=== PATIENT | male | born 1960 | race Hispanic/Latino ===

== ENCOUNTER 2017-05-25 05:57 | Inpatient (IN) | payer OTHER ==
[2017-05-06 07:50] VITALS: BMI 32.8
[2017-05-25] MEDS ORDERED: Bupivacaine 0.5% Inj(30mL) ONE ×2 (07:32→12:01)
[2017-05-25] MEDS ORDERED: Bupivacaine HCl 0.25% PF (10 ml) Inj ONE (07:32)
[2017-05-25] MEDS ORDERED: ceFAZolin IV 2 gm in Dextrose 0 GM/0 ML BAG IVPB ONE (07:33)
[2017-05-25] MEDS ORDERED: Midazolam 2 MG/2 ML VIAL ONE (07:43)
[2017-05-25] MEDS ORDERED: Propofol 10 mg/ml Inj (20 ML) ONE (07:43)
[2017-05-25] MEDS ORDERED: Lactated Ringer's 1,000 ML IV ONE ×2 (07:45→11:00)
[2017-05-25] MEDS ORDERED: Tranexamic Acid 100 mg/ml IV PRN (07:49)
--- NOTE | 2017-05-25 07:52 | CP.PCM.HP ---
History of Present Illness - History of Present Illness History of Present Illness: 56M with left knee DJD failed conservative mgmt and elected for TKR. 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) - HEENT Hx HEENT Problems: Yes (GLASSES) - RENAL Hx Chronic Kidney Disease: No - ENDOCRINE/METABOLIC Hx Endocrine Disorders: No - HEMATOLOGICAL/ONCOLOGICAL Hx Blood Disorders: No - INTEGUMENTARY Hx Dermatological Problems: No - MUSCULOSKELETAL/RHEUMATOLOGICAL Hx Musculoskeletal Disorders: Yes Hx Fractures: Yes (RT ARM /CASTED NO OR CHILDHOOD) Hx Osteoarthritis: Yes - GASTROINTESTINAL Hx Gastrointestinal Disorders: No - GENITOURINARY/GYNECOLOGICAL Hx Genitourinary Disorders: No - PSYCHIATRIC Hx Psychophysiologic Disorder: No Hx Substance Use: No - SURGICAL HISTORY Hx Surgeries: Yes Hx Arthroscopy: Yes (LEFT KNEE ARTHROSCOPY) Hx Orthopedic Surgery: Yes (ARM) Other/Comment: CRANIOTOMY EVACUATION SUB DURAL HEMATOMA 1985 - ANESTHESIA Hx Anesthesia: Yes Hx Anesthesia Reactions: No Hx Malignant Hyperthermia: No Has any member of the family had a problem w/ anesthesia?: No Meds Allergies/Adverse Reactions: Allergies Allergy/AdvReac Type Severity Reaction Status Date / Time amoxicillin trihydrate Allergy Verified 08/07/16 09:39 [From Augmentin] carbamazepine [From Tegretol] Allergy Verified 08/07/16 09:39 potassium clavulanate Allergy Verified 08/07/16 09:39 [From Augmentin] Physical Exam - Constitutional Appears: Well, No Acute Distress - Expanded Lower Extremities Exam Right Ankle exam: FULL ROM (+DP/PT pulses, calves soft NT neg homans +ROM ankle/toes, skin intact, no erythema) - Neurological Exam Neurological exam: Alert, Oriented x3 - Psychiatric Exam Psychiatric exam: Normal Affect, Normal Mood - Skin Skin Exam: Dry, Intact, Normal Color, Warm Results - Vital Signs Recent Vital Signs: Last Vital Signs Temp 98.1 F 05/25/17 06:16 Pulse 62 11/28/17 06:16 Resp 15 05/25/17 06:16 BP 143/71 05/25/17 06:16 Pulse Ox 96 05/25/17 06:16 Assessment & Plan (1) Primary osteoarthritis of left knee Assessment and Plan: NPO for OR Status: Acute
[2017-05-25] MEDS ORDERED: Bupivacaine Liposomal Inj 20 ml INFIL ONE (08:00)
[2017-05-25] MEDS ORDERED: Clindamycin 600mg/50ml NS 600 MG/50 ML BAG IVPB ONE (08:04)
[2017-05-25] MEDS ORDERED: Vancomycin 1 g Inj ONE (08:04)
[2017-05-25] MEDS ORDERED: Sodium Chloride 0.9% 20 ML IV ONE (08:11)
[2017-05-25] MEDS ORDERED: Bacitracin 150,000 UNIT in Sodium Chloride 0.9% Irrig 3,000 ML IR SCH (08:30)
[2017-05-25] MEDS ORDERED: ePHEDrine 50 mg/ml Inj ONE (08:38)
[2017-05-25] MEDS ORDERED: Rocuronium 10 mg/ml (10 ml) ONE ×2 (08:40)
[2017-05-25] MEDS ORDERED: Morphine 4 MG/ML VIAL ONE (09:46)
[2017-05-25] MEDS ORDERED: EPINEPHrine 1:1000 Nasal Sol(30mL) ONE (09:51)
[2017-05-25] MEDS ORDERED: Neostigmine Methylsulfate 3mg/3ml Syringe IV ONE (11:25)
[2017-05-25] MEDS ORDERED: HYDROmorphone 0.5 mg/0.5 ml ISec ONE (11:39)
[2017-05-25] MEDS: HYDROmorphone 0.5 mg/0.5 ml ISec IVP PRN ×7 (11:40→23:39)
--- NOTE | 2017-05-25 12:20 | RAD ---
PROCEDURE: Left Knee Radiographs. HISTORY: Pain. COMPARISON: None. FINDINGS: The patient is status post total left knee arthroplasty with prosthetic components seen in good alignment. A small amount of expected air and fluid is seen in suprapatellar bursa. A surgical drain is present. IMPRESSION: Status post total left knee arthroplasty.
--- NOTE | 2017-05-25 14:11 | PCM.ANESB7 ---
Adductor Canal Block - Adductor Canal Block Date of Procedure: 05/25/17 Procedure Performed: Adductor Canal Block Left - Procedure Adductor Canal Block: The procedure was explained to the patient that it is for the post-operative pain management. Consent was obtained after a thorough discussion with the patient regarding the benefits and possible complications of local anesthetic adductor canal block of the saphenous nerve. Standard monitors, as defined by the ASA, were applied to the patient. Time-out was held with the circulating nurse to confirm the appropriate block. After applying supplemental oxygen , the patient was placed in supine position with and the operative leg was flexed slightly at the knee and externally rotated as needed, and was kept anatomically stable. The mid-thigh of the LEFT lower extremity was exposed. The ultrasound transducer was then applied transversely along the medial aspect , about midway down the thigh and the femoral artery and vein were identified in appropriate relation with the sartorius muscle. At this time, the femoral nerve was visualized lateral to the femoral artery within the canal. After thorough identification, this area area was prepped with Chloroprep solution three times and 1 % Lidocaine was injected subcutaneously for topical anesthesia. At this point, a #22 gauge Stimuplex 4-inch needle was inserted in-plane in a [id number] orientation, and advanced toward the femoral nerve. Advancement was performed carefully under direct ultrasound visualization. . After negative aspiration, 5_cc of _0.5_% _bupivicaine__was injected and this was followed with _15 cc of _0.5 % bupivicaine__. Under ultrasound guidance the local anesthetics were observed spreading around the saphenous nerve. The needle was removed intact and sterile dressing was applied. The patient had stable vital signs, was conscious and in no apparent distress. The patient tolerated the adductor canal block well with stable vital signs, no paresthesias or other complaints.
[2017-05-25] MEDS: Oxycodone/Acetaminophen 5/325 mg Tab PO PRN (15:54)
[2017-05-25] MEDS: Clindamycin 600mg/50ml D5W 600 MG/50 ML VIAL IVPB SCH ×2 (16:10→20:00)
[2017-05-25] MEDS ORDERED: Sodium Chloride 0.9% 1,000 ML IV ONE (16:30)
[2017-05-25] MEDS: Sodium Chloride 0.9% 1,000 ML IV SCH ×2 (21:00→21:15)
--- NOTE | 2017-05-26 02:23 | OP ---
PREOPERATIVE DIAGNOSIS: Osteoarthritis of the left knee. POSTOPERATIVE DIAGNOSES: Severe osteoarthritis of the left knee with fixed flexion contracture of 15 degrees and fixed varus deformity of 15 degree. PROCEDURE: 1. Total knee replacement arthroplasty. 2. Autograft of the intercondylar notch of femur. 3. Release of fixed flexion contracture. 4. Release of fixed varus deformity. 5. Injection of Exparel. 6. Pulse lavage irrigation. 7. Insertion of vancomycin powder. 8. Insertion of Hemovac drain and application of compression dressing. PROCEDURE: Prior to the procedure, risks and benefits of the surgery, problems and complication explained including infection, cardiac, pulmonary, need for future surgery, permanent weakness, permanent numbness, possible loss of life and limb, etc, the patient fully understand and is agreeable. All the questions were answered. The patient was brought to the operating room. The left lower extremity was identified as extremity to be operated. Left lower extremity was prepped and draped in the usual manner. After draping and inflating the pneumatic tourniquet, a midline incision was made. Medial arthrotomy was done. The knee was subluxed laterally. The patient was found to have severe tricompartmental arthritis predominantly involving the medial and patellofemoral compartments. The fixed flexion contracture and fixed varus deformity are noted. Partial, medial, lateral meniscectomies were done. The knee was flexed to 90 degrees. Patella was subluxed laterally and osteophytes were excised. The release of soft tissues was performed. At this time, we proceeded with resecting the distal femur. A airplane pilot hole was made in the intercondylar notch of femur and we inserted intramedullary kanu. Distal femoral resection was done to accommodate the flexion contracture. We proceeded with sizing the distal femur. Distal femur size is 70 mm size. At this point, using a 4-in-1 cutting block, anterior posterior cuts and also cutting of the chamfers was done. Once this was accomplished, we placed a femoral cutting guide. The intercondylar notch of femur was resected to accommodate the PS open box. The bone that was harvested was used to autograft the intercondylar notch of the femur. Then we proceeded to preparing the proximal tibia for the total knee replacement arthroplasty. Completion of medial, lateral meniscectomies were done. Proximal tibial resection was done keeping the posterior slope and varus and valgus alignment in mind. We used a cutting guide keying off from the more involved medial side. The guide was inserted and 4 mm of proximal tibia was resected. At this point, we prepared the proximal tibia using the reaming and a cruciate punch was used to accommodate the finned tibial stem. At this point, trial reduction was carried out and 10 mm spacer was found to be stable in flexion and extension. A 12 mm spacer was found to create a flexion contracture. At this point, we proceeded with preparing the patella. The circumferential soft tissue was excised around the patella including synovectomy. Osteophytes were removed. The patella was resected and patella was sized measured to be 34 mm in size. We proceeded with 34 mm of trial prosthesis. We used the template and we drilled 3 holes to accommodate the 3 pegs for the patellar prosthesis. At this point, we thoroughly lavaged the pulse lavage irrigation of the wound and we also used chlorhexidine irrigation. We implanted the permanent femur, permanent tibia. Once again, we did trial reduction of 12 mm tibial bearing, it was found to create flexion contracture. We proceeded with locking of the 10 mm tibial bearing and it was held secured with the locking plate. After this was done, the patella was cemented in place. Loose fragments of cement were removed. Patellar tracking was found to be excellent. At this point, the wounds were thoroughly irrigated. The tourniquet was released. Hemostasis was obtained. Exparel was injected around the joint. Please note that TXA was given before the beginning of the procedure and at the end of the procedure. The knee was closed and silver dressing applied. The patient tolerated the procedure well and left the operating room to the recovery room in satisfactory condition. Alejandra Kinsey MD
[2017-05-26] MEDS: Sodium Chloride 0.9% 1,000 ML IV SCH ×3 (02:26→19:15)
[2017-05-26] MEDS: HYDROmorphone 0.5 mg/0.5 ml ISec IVP PRN ×4 (03:44→19:09)
[2017-05-26] MEDS: Oxycodone/Acetaminophen 5/325 mg Tab PO PRN ×4 (06:43→22:52)
[2017-05-26 07:41] LABS: BLOOD UREA NITROGEN 28 mg/dL (9-20); CALCIUM 7.4 mg/dl (8.6-10.4); CARBON DIOXIDE 23 mmol/L (22-30); CHLORIDE 99 mmol/L (98-107); GFR AFRICAN-AMERICAN > 60; GLUCOSE,RANDOM 114 mg/dL (75-110); POTASSIUM 3.5 mmol/L (3.6-5.2); SODIUM 133 mmol/L (132-148)
[2017-05-26 07:42] LABS: HEMATOCRIT 34.4 % (35.0-51.0); MEAN CELL VOLUME 88.7 fL (80.0-94.0); MEAN CORPUSCULAR HGB CONC 33.9 g/dL (33.0-37.0); MEAN PLATELET VOLUME 8.1 fL (7.2-11.7); RED CELL DISTRIBUTION WIDTH 13.5 % (11.5-14.5); WHITE BLOOD COUNT 11.6 K/uL (4.8-10.8)
[2017-05-26] MEDS: Multivitamin With Minerals Tab PO SCH (09:28)
[2017-05-26] MEDS ORDERED: Potassium Chloride 20 mEq ER Tab PO ONE ×2 (11:00→12:17)
--- NOTE | 2017-05-26 12:28 | CP.PCM.PN ---
Subjective - Date & Time of Evaluation Date of Evaluation: 05/26/17 Time of Evaluation: 12:23 - Subjective Subjective: Patient states pain is currently controlled. Denies CP/SOB/dizziness. Denies numbness/tingling. Objective - Vital Signs/Intake and Output Vital Signs (last 24 hours): Temp Pulse Resp BP Pulse Ox 98.6 F 79 18 131/60 96 05/26/17 08:05 05/26/17 08:05 05/26/17 08:05 05/26/17 08:05 05/26/17 08:05 Intake and Output: 05/26/17 05/26/17 06:59 18:59 Intake Total 1040 Output Total 200 400 Balance -200 640 - Medications Medications: Current Medications Amlodipine Besylate (Norvasc) 10 mg PO DAILY [facility] Last Admin: 05/26/17 09:28 Dose: 10 mg Apixaban (Eliquis) 2.5 mg PO BID [facility] Last Admin: 05/26/17 09:27 Dose: 2.5 mg Ezetimibe (Zetia) 10 mg PO DAILY [facility] Last Admin: 05/26/17 09:28 Dose: 10 mg Ferrous Sulfate (Feosol) 325 mg PO DAILY [facility] Last Admin: 05/26/17 09:28 Dose: 325 mg Folic Acid (Folic Acid) 1 mg PO DAILY [facility] Last Admin: 05/26/17 09:28 Dose: 1 mg Hydromorphone HCl (Dilaudid) 0.5 mg IVP Q4H PRN PRN Reason: Pain, severe (8-10) Last Admin: 05/26/17 07:54 Dose: 0.5 mg Sodium Chloride (Sodium Chloride 0.9%) 1,000 mls @ 100 mls/hr IV .Q10H [facility] Last Admin: 05/26/17 08:00 Dose: Not Given Losartan Potassium (Cozaar) 100 mg PO DAILY [facility] Last Admin: 05/26/17 09:29 Dose: 100 mg Multivitamins/Minerals (Therapeutic-M Tab) 1 tab PO DAILY [facility] Last Admin: 05/26/17 09:28 Dose: 1 tab Ondansetron HCl (Zofran Inj) 4 mg IVP Q6H PRN PRN Reason: Nausea/Vomiting Oxycodone/Acetaminophen (Percocet 5/325 Mg Tab) 2 tab PO Q4H PRN PRN Reason: Pain, moderate (4-7) Stop: 05/28/17 11:16 Last Admin: 05/26/17 10:54 Dose: 2 tab Rosuvastatin Calcium (Crestor) 5 mg PO HS [facility] Tranexamic Acid (Tranexamic Acid) 1,000 mg IV Q2H PRN PRN Reason: 1 G BEFORE AND AFTER INCISION Zolpidem Tartrate (Ambien) 5 mg PO HS PRN PRN Reason: Insomnia Last Admin: 05/25/17 23:00 Dose: 5 mg - Labs Labs: 05/26/17 07:10 05/26/17 07:10 - Extremities Exam Additional comments: LLE: +ROM ankle/toes, sensation intact, +DP/PT Pulses, calves soft NT neg homans hemovac intact, on CPM, NAD Assessment and Plan (1) Primary osteoarthritis of left knee Assessment & Plan: POD#1 s/p left TKR -d/c planning to home with services -grisis VTE proph -PT/OT -CPM -doppers tomorrow -Kdur ordered -labs in am -d/w Dr. Kinsey, agrees with above Status: Acute
[2017-05-26] MEDS: HYDROmorphone 1 mg/ml ISec IVP PRN (23:47)
[2017-05-27] MEDS: HYDROmorphone 1 mg/ml ISec IVP PRN ×2 (04:04→21:49)
[2017-05-27] MEDS: Sodium Chloride 0.9% 1,000 ML IV SCH (05:53)
[2017-05-27] MEDS: Oxycodone/Acetaminophen 5/325 mg Tab PO PRN ×3 (07:06→17:34)
[2017-05-27 07:32] LABS: HEMATOCRIT 32.7 % (35.0-51.0); MEAN CELL VOLUME 88.7 fL (80.0-94.0); MEAN CORPUSCULAR HEMOGLOBIN 30.9 pg (27.0-31.0); MEAN CORPUSCULAR HGB CONC 34.9 g/dL (33.0-37.0); MEAN PLATELET VOLUME 7.9 fL (7.2-11.7); RED CELL DISTRIBUTION WIDTH 13.5 % (11.5-14.5); WHITE BLOOD COUNT 9.9 K/uL (4.8-10.8)
--- NOTE | 2017-05-27 08:07 | CP.PCM.PN ---
Subjective - Date & Time of Evaluation Date of Evaluation: 05/27/17 Time of Evaluation: 07:59 - Subjective Subjective: Patient states pain overnight was severe. Pain medication was increased and it is a little better. Denies CP/SOB/numbness/tingling. Feels a little dizzy after pain medication, encouraged patient to take pain medication with food. Objective - Vital Signs/Intake and Output Vital Signs (last 24 hours): Temp Pulse Resp BP Pulse Ox 98.7 F 84 20 131/68 95 05/27/17 04:00 05/27/17 04:00 05/27/17 04:00 05/27/17 04:00 05/27/17 04:00 Intake and Output: 05/27/17 05/27/17 06:59 18:59 Intake Total 966 Output Total 1300 Balance -334 - Medications Medications: Current Medications Amlodipine Besylate (Norvasc) 10 mg PO DAILY [facility] Last Admin: 05/26/17 09:28 Dose: 10 mg Apixaban (Eliquis) 2.5 mg PO BID [facility] Last Admin: 05/26/17 19:08 Dose: 2.5 mg Ezetimibe (Zetia) 10 mg PO DAILY [facility] Last Admin: 05/26/17 09:28 Dose: 10 mg Ferrous Sulfate (Feosol) 325 mg PO DAILY [facility] Last Admin: 05/26/17 09:28 Dose: 325 mg Folic Acid (Folic Acid) 1 mg PO DAILY [facility] Last Admin: 05/26/17 09:28 Dose: 1 mg Hydromorphone HCl (Dilaudid) 1 mg IVP Q4H PRN PRN Reason: Pain, severe (8-10) Last Admin: 05/27/17 04:04 Dose: 1 mg Sodium Chloride (Sodium Chloride 0.9%) 1,000 mls @ 100 mls/hr IV .Q10H [facility] Last Admin: 05/27/17 05:53 Dose: Not Given Ketorolac Tromethamine (Toradol) 30 mg IVP ONCE ONE Stop: 05/27/17 08:16 Losartan Potassium (Cozaar) 100 mg PO DAILY [facility] Last Admin: 05/26/17 09:29 Dose: 100 mg Multivitamins/Minerals (Therapeutic-M Tab) 1 tab PO DAILY [facility] Last Admin: 05/26/17 09:28 Dose: 1 tab Ondansetron HCl (Zofran Inj) 4 mg IVP Q6H PRN PRN Reason: Nausea/Vomiting Oxycodone/Acetaminophen (Percocet 5/325 Mg Tab) 2 tab PO Q4H PRN PRN Reason: Pain, moderate (4-7) Stop: 05/28/17 11:16 Last Admin: 05/27/17 07:06 Dose: 2 tab Rosuvastatin Calcium (Crestor) 5 mg PO HS [facility] Last Admin: 05/26/17 21:21 Dose: 5 mg Tranexamic Acid (Tranexamic Acid) 1,000 mg IV Q2H PRN PRN Reason: 1 G BEFORE AND AFTER INCISION Zolpidem Tartrate (Ambien) 5 mg PO HS PRN PRN Reason: Insomnia Last Admin: 05/26/17 21:21 Dose: 5 mg - Labs Labs: 05/27/17 07:06 05/26/17 07:10 - Extremities Exam Additional comments: +ROM ankle/toes,s ensation intact, calves soft NT neg homans, incision intact, dry, hemovac pulled and compression dressing applied. +DP/PT pulses, no erythema. Assessment and Plan (1) Primary osteoarthritis of left knee Assessment & Plan: POD#2 s/p left TKR -will try toradol for pain control -narcotics with food -PT/OT -f/u labs -d/c planning to home, will see how patient feels in pm, set up for home PT -f/u dopplers -d/w Dr. Kinsey, agrees with above Status: Acute
[2017-05-27 08:46] LABS: BLOOD UREA NITROGEN 21 mg/dL (9-20); CALCIUM 7.7 mg/dl (8.6-10.4); CARBON DIOXIDE 28 mmol/L (22-30); CHLORIDE 99 mmol/L (98-107); GFR AFRICAN-AMERICAN > 60; GLUCOSE,RANDOM 111 mg/dL (75-110); POTASSIUM 3.9 mmol/L (3.6-5.2); SODIUM 136 mmol/L (132-148)
[2017-05-27] MEDS: Multivitamin With Minerals Tab PO SCH (09:42)
--- NOTE | 2017-05-27 13:52 | VASCLAB ---
PROCEDURE: Lower Extremity Venous Duplex Exam. HISTORY: Leg swelling PRIORS: None. TECHNIQUE: Bilateral common femoral, femoral, popliteal and posterior tibial, peroneal and great saphenous veins were evaluated. Flow was assessed with color Doppler, compressibility, assessment of phasic flow and augmentation response. Report prepared by DANITA Owen, RVT FINDINGS: RIGHT: 1. Common Femoral Vein: 1.1. Compressibility - Fully compressible: Thrombus - None : Flow - Phasic: Augmentation -Normal: Reflux - None. 2. Femoral Vein: 2.1. Compressibility - Fully compressible: Thrombus - None : Flow - Phasic: Augmentation -Normal: Reflux - None. 3. Popliteal Vein: 3.1. Compressibility - Fully compressible: Thrombus - None : Flow - Phasic: Augmentation -Normal: Reflux - None. 4. Posterior Tibial Vein: 4.1. Compressibility - Fully compressible: Thrombus - None: Flow - Phasic: Augmentation -Normal: Reflux - None. 5. Peroneal Vein: 5.1. Compressibility - Fully compressible: Thrombus - None: Flow - Phasic: Augmentation -Normal: Reflux - None. 6. Great Saphenous Vein: 6.1. Compressibility - Fully compressible: Thrombus - None: Flow - Phasic: Augmentation - Normal: Reflux - None. LEFT: 1. Common Femoral Vein: 1.1. Compressibility - Fully compressible: Thrombus - None: Flow - Phasic: Augmentation -Normal: Reflux - None. 2. Femoral Vein: 2.1. Compressibility - Fully compressible: Thrombus - None: Flow - Phasic: Augmentation -Normal: Reflux - None. 3. Popliteal Vein: 3.1. Compressibility - Fully compressible: Thrombus - None : Flow - Phasic: Augmentation -Normal: Reflux - None. 4. Posterior Tibial Vein: 4.1. Compressibility - Fully compressible: Thrombus - None: Flow - Phasic: Augmentation -Normal: Reflux - None. 5. Peroneal Vein: 5.1. Compressibility - Fully compressible: Thrombus - None: Flow - Phasic: Augmentation -Normal: Reflux - None. 6. Great Saphenous Vein: 6.1. Compressibility - Fully compressible: Thrombus - None: Flow - Phasic: Augmentation - Normal: Reflux - None. OTHER FINDINGS: Right: None significant. Left: None significant. IMPRESSION: Right: No evidence of deep or superficial vein thrombosis of the right lower extremity. Normal valve function noted of the right side. Left: No evidence of deep or superficial vein thrombosis of the left lower extremity. Normal valve function noted of the left side.
[2017-05-28] MEDS: Oxycodone/Acetaminophen 5/325 mg Tab PO PRN ×2 (00:46→06:46)
[2017-05-28 08:01] VITALS: RESP 18
[2017-05-28 08:32] VITALS: BP 129/58; PULSE 77; TEMP 99.3; O2SAT 99
[2017-05-28] MEDS: HYDROmorphone 1 mg/ml ISec IVP PRN (09:13)
[2017-05-28] MEDS: Multivitamin With Minerals Tab PO SCH (09:14)
--- NOTE | 2017-05-28 09:55 | CP.PCM.PN ---
Subjective - Date & Time of Evaluation Date of Evaluation: 05/28/17 Time of Evaluation: 12:57 - Subjective Subjective: Patient states pain is better controlled today. Denies CP/SOB/dizziness. Objective - Vital Signs/Intake and Output Vital Signs (last 24 hours): Temp Pulse Resp BP Pulse Ox 99.3 F 77 18 129/58 L 99 05/28/17 08:31 05/28/17 08:31 05/28/17 08:31 05/28/17 08:31 05/28/17 08:31 Intake and Output: 05/28/17 05/28/17 06:59 18:59 Intake Total 500 118 Balance 500 118 - Medications Medications: Current Medications Amlodipine Besylate (Norvasc) 10 mg PO DAILY [facility] Last Admin: 05/28/17 09:14 Dose: 10 mg Apixaban (Eliquis) 2.5 mg PO BID [facility] Last Admin: 05/28/17 09:14 Dose: 2.5 mg Ezetimibe (Zetia) 10 mg PO DAILY [facility] Last Admin: 05/28/17 09:14 Dose: 10 mg Ferrous Sulfate (Feosol) 325 mg PO DAILY [facility] Last Admin: 05/28/17 09:14 Dose: 325 mg Folic Acid (Folic Acid) 1 mg PO DAILY [facility] Last Admin: 05/28/17 09:14 Dose: 1 mg Hydromorphone HCl (Dilaudid) 1 mg IVP Q4H PRN PRN Reason: Pain, severe (8-10) Last Admin: 05/28/17 09:13 Dose: 1 mg Losartan Potassium (Cozaar) 100 mg PO DAILY [facility] Last Admin: 05/28/17 09:14 Dose: 100 mg Multivitamins/Minerals (Therapeutic-M Tab) 1 tab PO DAILY [facility] Last Admin: 05/28/17 09:14 Dose: 1 tab Ondansetron HCl (Zofran Inj) 4 mg IVP Q6H PRN PRN Reason: Nausea/Vomiting Last Admin: 05/27/17 11:40 Dose: 4 mg Oxycodone/Acetaminophen (Percocet 5/325 Mg Tab) 2 tab PO Q4H PRN PRN Reason: Pain, moderate (4-7) Stop: 05/28/17 11:16 Last Admin: 05/28/17 06:46 Dose: 2 tab Rosuvastatin Calcium (Crestor) 5 mg PO HS [facility] Last Admin: 05/27/17 21:49 Dose: 5 mg Zolpidem Tartrate (Ambien) 5 mg PO HS PRN PRN Reason: Insomnia Last Admin: 05/27/17 21:49 Dose: 5 mg - Labs Labs: 05/27/17 07:06 05/27/17 07:06 - Extremities Exam Additional comments: Left knee: mod sang drainage from hemovac site on dressing, no active oozing. Incision intact, no erythema. Calves soft NT neg homans but noted some peripheral swelling to left leg, ankle in dependant position, elevated, encouraged ankle pumps. dressing reapplied. +ROM ankle/toes, sensation intact Assessment and Plan (1) Primary osteoarthritis of left knee Assessment & Plan: d/c home today eliquis x 14 days home PT encourage OOB f/u Dr. Kinsey approx 10 days call for appointment [place] [employer] patient report reviewed, tylenol#3 06/2016 last rx from ER. Patient counseled on the risks of addiction, physical or psychological dependence, and overdose associated with opioid drugs and the danger of taking opioid drugs with alcohol and other central nervous system depressants, and cautioned patient on storage and disposal. Status: Acute (2) Acute blood loss anemia Assessment & Plan: hemodynamically stable Status: Acute (3) Hypertension Assessment & Plan: cont home meds Status: Chronic (4) Hyperlipidemia Assessment & Plan: cont home meds Status: Chronic
--- NOTE | 2017-05-28 12:56 | CP.PCM.DIS ---
Provider - Provider Date of Admission: 05/25/17 11:15 Attending physician: Alejandra Kinsey MD Time Spent in preparation of Discharge (in minutes): 5 Diagnosis - Discharge Diagnosis (1) Primary osteoarthritis of left knee Status: Acute (2) Hyperlipidemia Status: Chronic (3) Hypertension Status: Chronic (4) Acute blood loss anemia Status: Acute Hospital Course - Lab Results Lab Results: Most Recent Lab Values WBC 9.9 K/uL (4.8-10.8) 05/27/17 07:06 RBC 3.68 Mil/uL (4.40-5.90) L 05/27/17 07:06 Hgb 11.4 g/dL (12.0-18.0) L 05/27/17 07:06 Hct 32.7 % (35.0-51.0) L 05/27/17 07:06 MCV 88.7 fL (80.0-94.0) 05/27/17 07:06 MCH 30.9 pg (27.0-31.0) 05/27/17 07:06 MCHC 34.9 g/dL (33.0-37.0) 05/27/17 07:06 RDW 13.5 % (11.5-14.5) 05/27/17 07:06 Plt Count 170 K/uL (130-400) 05/27/17 07:06 MPV 7.9 fL (7.2-11.7) 05/27/17 07:06 Sodium 136 mmol/L (132-148) 05/27/17 07:06 Potassium 3.9 mmol/L (3.6-5.2) 05/27/17 07:06 Chloride 99 mmol/L (98-107) 05/27/17 07:06 Carbon Dioxide 28 mmol/L (22-30) 05/27/17 07:06 Anion Gap 13 (10-20) 05/27/17 07:06 BUN 21 mg/dL (9-20) H 05/27/17 07:06 Creatinine 0.9 mg/dL (0.8-1.5) 05/27/17 07:06 Est GFR ( Amer) > 60 05/27/17 07:06 Est GFR (Non-Af Amer) > 60 05/27/17 07:06 POC Glucose (mg/dL) 109 mg/dL (65-110) 05/28/17 06:27 Random Glucose 111 mg/dL (75-110) H 05/27/17 07:06 Calcium 7.7 mg/dl (8.6-10.4) L 05/27/17 07:06 Blood Type O POSITIVE 05/25/17 07:04 Antibody Screen Negative 05/25/17 07:04 - Hospital Course Hospital Course: 56M with PMH: HTN, hypercholesterolemia with left knee osteoarthritis failed conservative management and elected for TKR. Postoperative imaging demonstrated acceptable position of prosthesis. HTN controlled throughout admission. Bilateral lower extremity venous dopplers were ordered for leg swelling, and were negative for DVT on post operative day #2. Patients post operative course was complicated by acute blood loss anemia, hemodynamically stable and well tolerated, no treatment needed. Patient tolerated PT/OT well. Patient received VTE prophylaxis in the form of eliquis 2.5mg PO BID and venodynes. PT was discharged home, and continued on home medications as well as the eliquis , percocet, and ambien. Patient was WBAT LLE, ambulating with walker, and given instructions for q2-3d dressing changes and to f/u Dr. Kinsey in approx 1 week. Discharge Plan - Discharge Medications Prescriptions: Apixaban [Eliquis] 2.5 mg PO BID #28 tab oxyCODONE/Acetaminophen [Percocet 5/325 mg Tab] 2 tab PO Q4H PRN #50 tab PRN Reason: Pain, Moderate (4-7) Zolpidem [Ambien] 5 mg PO HS PRN #10 tab PRN Reason: Insomnia - Follow Up Plan Condition: GOOD Disposition: HOME/ ROUTINE Instructions: Oxycodone/Acetaminophen (By mouth), Zolpidem (By mouth), Apixaban (By mouth), Pain Management After Surgery (DC), Knee Replacement (DC) Additional Instructions: Dressing change q2-3 days prn Keep incision sites clean and dry Knee immobilizer at night, may remove during day Encourage ROM knee Follow up Dr. Kinsey approx 1 week call for appt Referrals: Alejandra Kinsey MD [Staff Provider] -
== END 2017-05-28 14:08 | disposition home or self-care (01) | DRG 470 ==
LOC: C.SDS 05:57 → C.9S 11:15 → C.6T 20:30
PROVIDERS: ADMIT Orthopaedic Surgery; ATTEND Orthopaedic Surgery
PROC: 0SND0ZZ Release Left Knee Joint, Open Approach (ICD-10-PCS; 2017-05-25)
PROC: 3E0T3BZ Introduction of Anesthetic Agent into Peripheral Nerves and Plexi, Percutaneous Approach (ICD-10-PCS; 2017-05-25)
PROC: 0SRD0J9 Replacement of Left Knee Joint with Synthetic Substitute, Cemented, Open Approach (ICD-10-PCS; principal; 2017-05-25 07:45)
DX: M17.12 Unilateral primary osteoarthritis, left knee (principal); M21.162 Varus deformity, not elsewhere classified, left knee; M24.562 Contracture, left knee; D62 Acute posthemorrhagic anemia; G89.18 Other acute postprocedural pain; I10 Essential (primary) hypertension; E78.00 Pure hypercholesterolemia, unspecified; E78.5 Hyperlipidemia, unspecified

== ENCOUNTER 2018-07-14 07:39 | Outpatient (CLI) | payer OTHER | END 2018-07-14 07:40 | disposition home or self-care (01) | LOC: C.LAB 07:39 | DX: E78.2 Mixed hyperlipidemia (principal); I10 Essential (primary) hypertension ==